=== PATIENT | female | born 1955 | race Caucasian/White ===

== ENCOUNTER 2017-02-20 21:53 | Emergency (ER) | payer SELFPAY ==
[~2017-02-20] VITALS: Ht 180.3 cm; Wt 70.0 kg
[2017-02-20 21:56] VITALS: Ht 180.3 cm; Wt 70.0 kg
[2017-02-21] MEDS ORDERED: ONDANSETRON (ODT) 4 MG TAB ODT STA (00:10)
--- NOTE | 2017-02-21 00:27 | ERD ---
ER Documentation Chief Complaint Chief Complaint HPI Patient is a 60-year-old female who went down to [employer] a heavy box and when she lifted it she had a sharp strong pain in the right side of her lower back. She is ambulatory. She took tramadol but it did not help. No numbness or tingling. No bladder or bladder incontinence. No saddle anesthesia. No urinary symptoms. ROS All systems reviewed and are negative except as per history of present illness. Allergies Allergies: Coded Allergies: ibuprofen (Verified Allergy, Unknown, 02/20/17) PMhx/Soc Medical and Surgical Hx: pt denies Medical Hx, pt denies Surgical Hx History of Surgery: No Anesthesia Reaction: No Hx Neurological Disorder: No Hx Respiratory Disorders: No Hx Cardiac Disorders: No Hx Psychiatric Problems: No Hx Miscellaneous Medical Probl: No Hx Alcohol Use: No Hx Substance Use: No Hx Tobacco Use: No Smoking Status: Never smoker FmHx Family History: No diabetes Physical Exam Vitals Vital Signs Date Time Temp Pulse Resp B/P Pulse Ox O2 Delivery O2 Flow Rate FiO2 02/20/17 21:56 98.5 99 18 132/88 100 Physical Exam INITIAL VITAL SIGNS: Reviewed by me RESPIRATORY: Clear to auscultation bilaterally. Symmetric chest wall rise. No wheezing or rales. No accessory muscle use. CV: Regular rate and rhythm. No murmurs, rubs, or gallops. EXTREMITIES: No clubbing or cyanosis. No edema. Moving all extremities normally. BACK: No midline tenderness to palpation. No step-offs. Right lower paraspinal tenderness over lumbar spine as well as right buttocks, ambulatory, no bony abnormality Results 24 hrs Current Medications Medications (Trade) Dose Ordered Sig/Mario Route PRN Reason Start Time Stop Time Status Last Admin Dose Admin Morphine Sulfate (morphine) 8 mg ONCE ONCE IM 02/21/17 00:30 02/21/17 00:31 Ondansetron HCl (Zofran Odt) 4 mg ONCE STAT ODT 02/21/17 00:10 02/21/17 00:11 DC Procedures/MDM Patient is moderate to severe low back pain after lifting heavy boxes. She is ambulatory neurovascular intact. Low suspicion for fracture therefore no imaging ordered. However she was given morphine IM and Zofran ODT with improvement of her symptoms she was discharged with Tylenol and Eros. Patient counseled regarding my diagnostic impression and care plan. Prior to discharge all questions answered. Pt agrees with treatment plan and understands strict return precautions. Pt is instructed to follow up with primary care provider within 24-48 hours. Precautionary instructions provided including instructions to return to the ER if not improving or for any worsening or changing symptoms or concerns. Departure Diagnosis: Primary Impression: Back pain Condition: Stable ANEUDY GALLEGOS PA-C Feb 21, 2017 00:27
[2017-02-21] MEDS ORDERED: morphine 10 MG INJ IM ONE (00:30)
[2017-02-21] MEDS ORDERED: CYCL-319 PO (00:30)
[2017-02-21] MEDS ORDERED: HYDR-906 PO (00:30)
[2017-02-21] MEDS ORDERED: ACET500C5 PO (00:30)
== END 2017-02-21 01:21 | disposition home or self-care (01) ==
LOC: FTE 21:53
DX: M54.5 Low back pain (principal)
CPT/HCPCS: 96372; 99284; J2270

== ENCOUNTER → 2017-02-28 | Emergency (ER) | payer MEDICAID ==
[~2017-02-28] VITALS: Ht 162.6 cm; Wt 70.3 kg
[~2017-02-28] MED LIST: ACET500C5 PO; CYCL-319 PO; HYDR-906 PO
[2017-02-28 19:31] VITALS: Ht 162.6 cm; Wt 70.3 kg
--- NOTE | 2017-02-28 20:32 | ERD ---
ER Documentation Chief Complaint Chief Complaint right lower back pain, radiating to the right leg HPI 61-year-old female presented with a chief complaint of back pain worsening over the past 3 months. Patient denies mechanism of injury. Patient was seen in the emergency department one month ago for back pain status post lifting heavy boxes which she now denies. Pain radiates to right leg. Patient states that she has been diagnosed with sciatica. Is requesting pain medications. Patient denies history of cancer, recent illness, unexplained weight loss, saddle anesthesia, urinary retention, loss of bowel or bladder control, tidal anesthesia, pain at rest, or pain with Valsalva. Has not taken any medications for the pain. Has seen a chiropractor this morning without relief. Patient has no other complaints and describes no other associated manifestations. Nursing notes have been reviewed and are consistent with history given. ROS All systems reviewed and are negative except as per history of present illness. Medications Home Meds Active Scripts Acetaminophen* (Tylophen*) 500 Mg Capsule, 2 CAP PO Q8H Y for PAIN AND OR ELEVATED TEMP, #30 CAP Prov:ANEUDY GALLEGOS PA-C 02/21/17 Hydrocodone/Acetaminophen ([place] 5-325 Tablet) 1 Each Tablet, 1 TAB PO Q6H Y for PAIN, #20 TAB Prov:ANEUDY GALLEGOS PA-C 02/21/17 Cyclobenzaprine Hcl* (Cyclobenzaprine Hcl*) 10 Mg Tablet, 10 MG PO QHS, #15 TAB Prov:ANEUDY GALLEGOS PA-C 02/21/17 Allergies Allergies: Coded Allergies: ibuprofen (Verified Allergy, Unknown, 02/20/17) PMhx/Soc Medical and Surgical Hx: pt denies Medical Hx History of Surgery: Yes (CHOLECYSTECTOMY) Anesthesia Reaction: No Hx Neurological Disorder: No Hx Respiratory Disorders: No Hx Cardiac Disorders: No Hx Psychiatric Problems: No Hx Miscellaneous Medical Probl: No Hx Alcohol Use: No Hx Substance Use: No Hx Tobacco Use: No Smoking Status: Never smoker Physical Exam Vitals Vital Signs Date Time Temp Pulse Resp B/P Pulse Ox O2 Delivery O2 Flow Rate FiO2 02/28/17 19:31 98.6 114 22 146/84 98 Physical Exam Const: Well-appearing. Mild distress. Back: No midline, flank or CVA tenderness. Negative straight leg raise. Range of motion decreased secondary to pain. Neur: No saddle anesthesia. Neurovascularly intact bilaterally. Head: Normocephalic, Atraumatic. Eyes: Non-injected; No discharge. EOMI and CONTRERAS bilaterally. Ears: Normal External Ears, EACs clear, TM normal bilaterally without erythema. Nose: Normal external nose; no discharge, or sinus tenderness. Oral: No oral edema visualized. Mucous membranes moist and pink. Neck: No tenderness. No cervical lymphadenopathy, or masses palpated. Supple ~ No meningismus. Pulm: Good air movement in upper and lower respiratory tracts. Clear to auscultation bilaterally. No dyspnea or stridor. Cardio: Regular rate and rhythm; No murmurs, gallops or rubs auscultated. Radia pulses 2+ bilaterally. No cyanosis noted. Capillary refill less than 2 seconds. Abd: Normal bowel sounds. Soft, non tender, non distended. MS: Normal motor strength, normal tone with gross examination. Skin: No petechiae or rashes. Good turgor. Ext: No edema. Normal movement of all extremities grossly observed. Psych: Normal Mood and Affect. Procedures/MDM Patient was evaluated and worked up for back pain as described in history and physical examination. No mechanism of injury. No indication for radiographs at this time. Most likely diagnosis sciatica radiating to right leg. Thus, the treatment plan will include [id number] ibuprofen for discomfort as well as conservative therapy which has been discussed with the patient. At this time I do not suspect cauda equina syndrome, spinal cord compression, aortic involvement, epidural abscess, obstructive nephrolithiasis, pyelonephritis, or other neurovascular compromise. I have spoke with the patient regarding their condition and future management. They have verbally responded that they understand their status and treatment plan. The patients vitals are stable, and their current condition is appropriate for discharge. The patient will be given discharge instructions with return precautions. Departure Diagnosis: Primary Impression: Back pain Back pain location: low back pain Chronicity: chronic Back pain laterality : right Sciatica presence: with sciatica Sciatica laterality: sciatica of right side Qualified Code: M54.41 - Chronic right-sided low back pain with right-sided sciatica Condition: Stable Patient Instructions: Back Pain W/ Sciatica Additional Instructions: Follow up with your PCP within the next 1-3 days for a more thorough evaluation and a possible referral to a specialist. Return the the emergency department immediately if symptoms worsen or change. If you have any questions regarding medications, ask your pharmacist or us before you leave. If any adverse reactions occur while taking your medications, discontinue the treatment and return to the emergency department immediately. Take your medications as directed, and complete the entire course of treatment. ALANNAH ESCOBAR PA-C Feb 28, 2017 20:32
== END | disposition home or self-care (01) ==
LOC: FTE 19:27
DX: M54.41 Lumbago with sciatica, right side (principal)
CPT/HCPCS: 99282